=== PATIENT | male | born 1955 | race African-American/Black ===

== ENCOUNTER 2016-11-13 08:42 | Outpatient (CLI) | payer MEDICARE, MEDICAID ==
--- NOTE | 2016-11-13 11:04 | PRG ---
DATE OF SERVICE: 11/13/2016 SUBJECTIVE: This is a 61-year-old male returns today for right great toe ulceration. He did go and get his CT scan as I requested last week. He has had no problems with his dressing changes using P romogran, then Aquacel AG and Coban. Denies any nausea, vomiting, fevers or chills. PHYSICAL EXAMINATION: Ulcer to the right great toe plantar surface measures 0.2 cm x 0.3 cm x 0.4 cm of depth. There is 100% granular tissue within the wound base. There was a hyperkeratotic rim, scant serosanguineous drainage, no periwound erythema, edema or warmth. Reviewed CT scan which shows an accessory ossicle under the hallux interphalangeal joint which direc tly communicates with the ulceration. 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 PLAN: 1. Full thickness debridement of the subcutaneous tissue layer down to a bleeding granular base, re moving all nonviable tissue within the wound base and hyperkeratotic periwound tissue. 2. We are going to continue with Promogran, Aquacel AG, and a gauze and Coban dressing changes on a daily basis. 3. Discussed with patient the accessory ossicle which is probable putting pressure on the wound sit e and most contribution to why we are not getting this to heal. We discussed excising the accessory ossicle along with ellipsing of the ulceration and performing primary closure. We are going to jose r edule this as soon as possible. He will get surgical clearance from his primary care physician and return postoperatively.
== END 2016-11-13 08:43 | disposition home or self-care (01) ==
LOC: WCC 08:42
PROVIDERS: ATTEND Family Medicine
DX: E11.621 Type 2 diabetes mellitus with foot ulcer (principal); E11.42 Type 2 diabetes mellitus with diabetic polyneuropathy; L97.512 Non-pressure chronic ulcer of other part of right foot with fat layer exposed
CPT/HCPCS: 11042

== ENCOUNTER 2021-06-18 16:29 | Inpatient (IN) | payer MEDICARE, MEDICAID ==
[2021-06-18] MEDS ORDERED: Acetaminophen 325 MG TAB PO PRN (20:52)
[2021-06-18] MEDS ORDERED: Ondansetron PF 4 MG/2 ML Vial IVP PRN (20:52)
[2021-06-18] MEDS ORDERED: Dextrose 5% in Water 1,000 ML IV PRN (22:50)
[2021-06-18] MEDS ORDERED: Dextrose 50% Abboject 50 ML SYRINGE SLOW IVP PRN (22:50)
[2021-06-18 23:26] VITALS: BMI 34.3
[2021-06-19] MEDS ORDERED: Cefepime 2 GM in Sodium Chloride 0.9% 100 ML IVPB SCH (03:00)
[2021-06-19] MEDS ORDERED: VANCOMYCIN 1.75 GM/350 ML BAG 1.75 GM in Premix Bag 1 BAG IVPB SCH (04:00)
[2021-06-19] MEDS: Gabapentin 300 MG CAP PO SCH ×3 (04:37→21:08)
[2021-06-19] MEDS: Levothyroxine Sodium 100 MCG TAB PO SCH (04:38)
[2021-06-19 06:22] LABS: #Eosinphils 0.3 thou/uL (0.0-0.7); #Lymphocytes 2.1 thou/uL (1.20-3.40); #Monocytes 0.6 thou/uL (0.11-0.59); #Neutrophils 1.4 thou/uL (1.40-6.50); %Basophils 0.6 % (0.0-1.0); %Eosinophils 6.8 % (0.0-10.0); %Lymphocytes 47.3 % (21.0-51.0); %Monocytes 13.8 % (0.0-10.0); %Neutrophils 31.5 % (42.0-75.0); Hemoglobin 11.9 g/dL (14.0-18.0); Mean Corpuscular HGB CONC 33.3 g/dL (32.0-36.0); Mean Corpuscular Hemoglobin 32.7 pg (27.0-31.0); Mean Platelet Volume 6.5 fL (7.4-10.4); Platelet Count 242 thou/uL (130-400); RBC Distribution Width 12.1 % (11.5-14.5); Red Blood Cell (RBC) Count 3.66 mill/uL (4.70-6.10); White Blood Cell (WBC) Count 4.5 thou/uL (4.8-10.8)
[2021-06-19 06:43] LABS: Anion Gap 11 mmol/L (10-20); BUN (Urea Nitrogen) 13 mg/dL (8.4-25.7); Calc. Creatinine Clearance 137 mL/min (70-130); Calcium 8.6 mg/dL (7.8-10.44); Carbon Dioxide 24 mmol/L (23-31); Chloride 102 mmol/L (98-107); Glucose 178 mg/dL (80-115); Potassium 4.2 mmol/L (3.5-5.1); Sodium 133 mmol/L (136-145)
[2021-06-19] MEDS: busPIRone HCl 10 MG TAB PO SCH ×3 (09:00→21:05)
[2021-06-19] MEDS: Ezetimibe 10 MG TAB PO SCH (09:00)
[2021-06-19] MEDS: Enoxaparin Sodium 40 MG/0.4 ML SYRINGE SC SCH (09:00)
[2021-06-19] MEDS: Insulin Glargine 30 UNITS/0.3 ML VIAL SC SCH ×2 (09:00→21:08)
[2021-06-19] MEDS: traMADol HCl 50 MG TAB PO PRN (09:06)
[2021-06-19] MEDS: HumaLOG 300 UNITS/3 ML VIAL SC PRN ×2 (12:35→16:01)
[2021-06-19] MEDS: Cefepime 1 GM in Sodium Chloride 0.9% 100 ML IVPB SCH (14:37)
[2021-06-19] MEDS: HYDROcodone/Acetaminophen 10/325 mg Tablet PO PRN (15:34)
[2021-06-19] MEDS: Vancomycin HCl 1.75 GM in Sodium Chloride 0.9% 500 ML IVPB SCH (16:01)
[2021-06-19] MEDS: Atorvastatin Calcium 10 MG TAB PO SCH (21:04)
[2021-06-19] MEDS ORDERED: hydrALAZINE 20 MG/ML VIAL SLOW IVP PRN (22:38)
[2021-06-20] MEDS: HumaLOG 300 UNITS/3 ML VIAL SC PRN ×5 (01:13→21:36)
[2021-06-20] MEDS: Cefepime 1 GM in Sodium Chloride 0.9% 100 ML IVPB SCH ×2 (02:54→15:01)
[2021-06-20 04:21] LABS: #Basophils 0.1 thou/uL (0.0-0.2); #Eosinphils 0.4 thou/uL (0.0-0.7); #Lymphocytes 2.1 thou/uL (1.20-3.40); #Monocytes 0.6 thou/uL (0.11-0.59); #Neutrophils 1.5 thou/uL (1.40-6.50); %Basophils 1.3 % (0.0-1.0); %Eosinophils 7.8 % (0.0-10.0); %Monocytes 13.7 % (0.0-10.0); %Neutrophils 32.2 % (42.0-75.0); Hemoglobin 12.9 g/dL (14.0-18.0); Mean Corpuscular Hemoglobin 33.4 pg (27.0-31.0); Mean Corpuscular Volume 98.2 fL (78.0-98.0); Mean Platelet Volume 6.5 fL (7.4-10.4); Platelet Count 247 thou/uL (130-400); Red Blood Cell (RBC) Count 3.86 mill/uL (4.70-6.10); White Blood Cell (WBC) Count 4.6 thou/uL (4.8-10.8)
[2021-06-20 04:42] LABS: Anion Gap 11 mmol/L (10-20); BUN (Urea Nitrogen) 11 mg/dL (8.4-25.7); Calc. Creatinine Clearance 160 mL/min (70-130); Calcium 8.9 mg/dL (7.8-10.44); Carbon Dioxide 23 mmol/L (23-31); Chloride 104 mmol/L (98-107); Glucose 160 mg/dL (80-115); Potassium 3.9 mmol/L (3.5-5.1); Sodium 134 mmol/L (136-145); Vancomycin, Trough 12.9 ug/mL
[2021-06-20] MEDS: Levothyroxine Sodium 100 MCG TAB PO SCH (05:26)
[2021-06-20] MEDS: Gabapentin 300 MG CAP PO SCH ×3 (05:26→21:35)
[2021-06-20] MEDS: Vancomycin HCl 1.75 GM in Sodium Chloride 0.9% 500 ML IVPB SCH (05:35)
[2021-06-20] MEDS: HYDROcodone/Acetaminophen 10/325 mg Tablet PO PRN ×3 (06:12→21:45)
[2021-06-20] MEDS: busPIRone HCl 10 MG TAB PO SCH ×3 (09:29→21:35)
[2021-06-20] MEDS: Ezetimibe 10 MG TAB PO SCH (09:29)
[2021-06-20] MEDS: Enoxaparin Sodium 40 MG/0.4 ML SYRINGE SC SCH (09:30)
[2021-06-20] MEDS: traMADol HCl 50 MG TAB PO PRN (09:30)
[2021-06-20] MEDS: Insulin Glargine 30 UNITS/0.3 ML VIAL SC SCH ×2 (09:30→21:36)
[2021-06-20] MEDS: Bacitracin 1 PK TOP SCH (10:52)
[2021-06-20] MEDS: Atorvastatin Calcium 10 MG TAB PO SCH (21:35)
[2021-06-21] MEDS: Cefepime 1 GM in Sodium Chloride 0.9% 100 ML IVPB SCH ×2 (03:56→14:50)
[2021-06-21] MEDS: Gabapentin 300 MG CAP PO SCH ×3 (06:10→21:02)
[2021-06-21] MEDS: Levothyroxine Sodium 100 MCG TAB PO SCH (06:11)
[2021-06-21] MEDS: HumaLOG 300 UNITS/3 ML VIAL SC PRN ×4 (06:11→20:27)
[2021-06-21 06:21] LABS: #Eosinphils 0.4 thou/uL (0.0-0.7); #Lymphocytes 2.2 thou/uL (1.20-3.40); #Monocytes 0.7 thou/uL (0.11-0.59); #Neutrophils 1.5 thou/uL (1.40-6.50); %Lymphocytes 45.2 % (21.0-51.0); %Monocytes 14.9 % (0.0-10.0); Hemoglobin 12.2 g/dL (14.0-18.0); Mean Corpuscular HGB CONC 33.3 g/dL (32.0-36.0); Mean Corpuscular Hemoglobin 32.9 pg (27.0-31.0); Mean Corpuscular Volume 98.6 fL (78.0-98.0); Mean Platelet Volume 6.5 fL (7.4-10.4); Platelet Count 226 thou/uL (130-400); RBC Distribution Width 12.1 % (11.5-14.5); Red Blood Cell (RBC) Count 3.71 mill/uL (4.70-6.10); White Blood Cell (WBC) Count 4.8 thou/uL (4.8-10.8)
[2021-06-21 06:49] LABS: Anion Gap 8 mmol/L (10-20); BUN (Urea Nitrogen) 12 mg/dL (8.4-25.7); Calc. Creatinine Clearance 160 mL/min (70-130); Calcium 9.1 mg/dL (7.8-10.44); Carbon Dioxide 25 mmol/L (23-31); Chloride 105 mmol/L (98-107); Glucose 149 mg/dL (80-115); Sodium 134 mmol/L (136-145)
[2021-06-21] MEDS: Enoxaparin Sodium 40 MG/0.4 ML SYRINGE SC SCH (08:13)
[2021-06-21] MEDS: Insulin Glargine 30 UNITS/0.3 ML VIAL SC SCH ×2 (08:14→20:26)
[2021-06-21] MEDS: busPIRone HCl 10 MG TAB PO SCH ×3 (08:14→20:25)
[2021-06-21] MEDS: Ezetimibe 10 MG TAB PO SCH (08:14)
[2021-06-21] MEDS: Bacitracin 1 PK TOP SCH (08:14)
[2021-06-21] MEDS: traMADol HCl 50 MG TAB PO PRN (08:16)
[2021-06-21 17:31] LABS: Vancomycin, Trough 16.9 ug/mL
[2021-06-21] MEDS: Atorvastatin Calcium 10 MG TAB PO SCH (20:25)
[2021-06-21] MEDS: Senokot S 8.6-50 MG TAB PO SCH (20:26)
[2021-06-21] MEDS: HYDROcodone/Acetaminophen 10/325 mg Tablet PO PRN (20:28)
[2021-06-22] MEDS: Cefepime 1 GM in Sodium Chloride 0.9% 100 ML IVPB SCH (02:03)
[2021-06-22] MEDS: Gabapentin 300 MG CAP PO SCH (05:09)
[2021-06-22] MEDS: Levothyroxine Sodium 100 MCG TAB PO SCH (05:09)
[2021-06-22] MEDS: HumaLOG 300 UNITS/3 ML VIAL SC PRN (05:10)
[2021-06-22] MEDS: Ezetimibe 10 MG TAB PO SCH (08:16)
[2021-06-22] MEDS: Senokot S 8.6-50 MG TAB PO SCH (08:16)
[2021-06-22] MEDS: busPIRone HCl 10 MG TAB PO SCH (08:16)
[2021-06-22] MEDS: Bacitracin 1 PK TOP SCH (08:16)
[2021-06-22] MEDS: Enoxaparin Sodium 40 MG/0.4 ML SYRINGE SC SCH (08:17)
[2021-06-22] MEDS: Insulin Glargine 30 UNITS/0.3 ML VIAL SC SCH (08:17)
[2021-06-22 08:27] VITALS: TEMP 97.5
[2021-06-22] MEDS ORDERED: Polyethylene Glycol 3350 17 GM Packet PO SCH (09:00)
[2021-06-22 09:14] VITALS: BP 149/75
== END 2021-06-22 10:48 | disposition home or self-care (01) | DRG 603 ==
LOC: T4-A 19:44
PROVIDERS: ADMIT Internal Medicine; ATTEND Internal Medicine
DX: L03.115 Cellulitis of right lower limb (principal); E11.621 Type 2 diabetes mellitus with foot ulcer; E03.9 Hypothyroidism, unspecified; I10 Essential (primary) hypertension; E11.42 Type 2 diabetes mellitus with diabetic polyneuropathy; G89.4 Chronic pain syndrome; F32.A Depression, unspecified; F10.10 Alcohol abuse, uncomplicated; L97.519 Non-pressure chronic ulcer of other part of right foot with unspecified severity; Z28.21 Immunization not carried out because of patient refusal; Z79.899 Other long term (current) drug therapy; Z79.4 Long term (current) use of insulin; Z79.890 Hormone replacement therapy; Z98.890 Other specified postprocedural states; Z83.3 Family history of diabetes mellitus; Z87.891 Personal history of nicotine dependence
CPT/HCPCS: 36415; 36416; 80048; 80202; 85025; J0360; J0692; J1815; J3370; J3490; J7030

== ENCOUNTER 2024-10-12 08:28 | Outpatient (CLI) | payer OTHER, MEDICAID | END 2024-10-12 08:29 | disposition home or self-care (01) | LOC: ULT 08:28 | PROVIDERS: ATTEND Family Medicine | DX: Z13.6 Encounter for screening for cardiovascular disorders (principal); Z87.891 Personal history of nicotine dependence | CPT/HCPCS: 76706 ==